=== PATIENT | male | born 1990 | race Caucasian/White ===

== ENCOUNTER 2017-06-09 09:43 | Emergency (ER) | payer OTHER ==
--- NOTE | 2017-06-09 11:53 | ED HAND/WRIST INJURY COMPLAINT ---
History of Present Illness General Chief Complaint: Laceration Procedure Stated Complaint: LAC TO L HAND Source: patient Exam Limitations: no limitations Vital Signs & Intake/Output Vital Signs & Intake/Output Vital Signs Date Time Temp Pulse Resp B/P B/P Pulse O2 O2 Flow FiO2 Mean Ox Delivery Rate 06/09 1211 97.6 76 18 124/79 97 Room Air 06/09 1157 98 Room Air 06/09 0956 97.4 75 15 113/75 98 Room Air Allergies Coded Allergies: No Known Allergies (06/09/17) Reconcile Medications No Known Home Medications Triage Note: PT TO ED S/P LAC TO LT HAND FROM [address] [employer] X1 DAY AGO. UNK LAST TETANUS, NO BLEEDING AT THIS TIME. Triage Nurses Notes Reviewed? yes Occurred: yesterday (5 PM) Duration: day(s):, constant Timing: recent history Injury Environment: home Method of Injury: laceration No Modifying Factors: none HPI: 27-year-old male comes into the emergency room with laceration to left hand. Patient cut the palm of his left hand yesterday within knife by accident. He went to the [facility] and bought some glue and put it on there. He comes in for further evaluation today. (Carlitos Oswald) Past History Travel History Traveled to [place] past 21 day No Medical History Any Pertinent Medical History? none Surgical History Surgical History: non-contributory Psychosocial History What is your primary language Georgian Tobacco Use: Never used Family History Hx Contributory? No (Carlitos Oswald) Review of Systems Review of Systems Constitutional: Reports: no symptoms. EENTM: Reports: no symptoms. Respiratory: Reports: no symptoms. Cardiovascular: Reports: no symptoms. GI: Reports: no symptoms. Genitourinary: Reports: no symptoms. Musculoskeletal: Reports: no symptoms. Skin: Reports: see HPI. Neurological/Psychological: Reports: no symptoms. Hematologic/Endocrine: Reports: no symptoms. Immunologic/Allergic: Reports: no symptoms. All Other Systems: Reviewed and Negative (Carlitos Oswald) Physical Exam Physical Exam General Appearance: well developed/nourished, mild distress Head: atraumatic Eyes: Bilateral: normal appearance. Ears, Nose, Throat: normal ENT inspection, hearing grossly normal Neck: normal inspection Cardiovascular/Respiratory: no respiratory distress Back: normal inspection Hand Left: 2.5 cm superficial laceration Hand Right: normal inspection Neurologic/Tendon: normal sensation, normal motor functions, normal tendon functions, responds to pain, no evidence tendon injury, no pulse deficit Skin: intact, normal color, warm/dry Lymphatic: no anterior cervical joshua (Carlitos Oswald) Progress Differential Diagnosis: dislocation, fracture, paronychia, septic arthritis, sprain, soft tissue fb Plan of Care: 06/09/2017 12:15:13 PM Patient clinically looks well. In no apparent distress. Nontoxic appearing. Due to the fact it has almost been 24 hours and the wound is so superficial Steri-Strips were used as opposed to Dermabond or sutures. Return if any concerns. Patient understands and agrees with plan of care. (Carlitos Oswald) Departure Departure Disposition: HOME OR SELF CARE Condition: Stable Clinical Impression Primary Impression: Hand laceration Referrals: Marlys CHOI,Brenda Cano (PCP/Family) Additional Instructions: Watch for signs of infection such as redness or discharge fever or chills. Return if any other concerns worsening symptoms. Let dressing fall off on its own. Please go over all results of today's visit with your primary care doctor. Contact your primary care doctor to let them know you were here in the emergency room. There may be nonspecific findings which may not be related to your visit today here in the emergency room but may require further evaluation and chronic monitoring by your primary care doctor. If you had a laceration today the chance of foreign body always remains. You should follow-up with your primary care doctor for recheck in 3-5 days for a wound check. If you had an x-ray done there is a chance that a fracture could have been missed on initial read and you should follow-up with your primary care doctor for repeat x-rays if symptoms persist. If your blood pressure was elevated here in the emergency room please have rechecked by [facility] primary care doctor within the next 48. If you were prescribed a narcotic here in the emergency room or any type of controlled substances you're not allowed to drive while taking this medication or operate any type of heavy machinery. Narcotics can make you feel lightheaded dizziness nausea and can cause constipation. You may need to product picker a stool softener. Thank you for choosing [facility] emergency room. Please return to the emergency room immediately if you have any other concerns worsening of symptoms. Departure Forms: Customer Survey General Discharge Information Prescriptions: Current Visit Scripts No Known Home Medications (Carlitos Oswald) PA/CHIROPRACTIC DOCTOR Co-Sign Statement Statement: ED Attending supervision documentation- [] I saw and evaluated the patient. I have also reviewed all the pertinent lab results and diagnostic results. I agree with the findings and the plan of care as documented in the PA's/CHIROPRACTIC DOCTOR's documentation. [X] I have reviewed the ED Record and agree with the PA's/CHIROPRACTIC DOCTOR's documentation. [] Additions or exceptions (if any) to the PAs/CHIROPRACTIC DOCTOR's note and plan are summarized below: [] (Michele CHOI,Shonna) Procedures Laceration/Wound Repair Progress: Left hand, irrigated with saline and peroxide, benzoin and Steri-Strips used, dry sterile dressing and Live wrap placed around it, patient tolerated procedure (Carlitos Oswald)
[2017-06-09 12:11] VITALS: BP 124/79
== END 2017-06-09 12:53 ==
LOC: ERH 09:43
DX: S61.412A Laceration without foreign body of left hand, initial encounter (principal); W45.8XXA Other foreign body or object entering through skin, initial encounter; Y92.9 Unspecified place or not applicable; Y93.9 Activity, unspecified
CPT/HCPCS: 90471; 90714